=== PATIENT | female | born 1970 | race Caucasian/White ===

== ENCOUNTER 2017-12-24 08:50 | Day surgery (SDC) | payer OTHER ==
[~2017-12-24] VITALS: Ht 167.6 cm; Wt 97.1 kg
--- NOTE | 2017-12-24 11:02 | NUR ---
has been updated x2 during wait. has been up to br x2 during wait. warm blanket on. iv patent.
--- NOTE | 2017-12-24 13:04 | NUR ---
12/24/17 1304 Codi Arambula TO PACU, AWAKENS EASILY. COUGHING NOTED. NON PRODUCTIVE AT THIS TIME.
[2017-12-24] MEDS ORDERED: NORCO 5-325 TA1 EACH (14:25)
[2017-12-24] MEDS ORDERED: IBUPROFEN800 MG PO (14:26)
--- NOTE | 2017-12-30 14:17 | OR ---
[facility] [address] [place], [place] [address] Signed DATE OF OPERATION: 12/24/2017 SURGEON: Ever Varela MD PREOPERATIVE DIAGNOSES: Heavy menstrual bleeding and thickened endometrium. POSTOPERATIVE DIAGNOSES: Heavy menstrual bleeding and thickened endometrium plus submucosal fibroid. PROCEDURE: Hysteroscopy with myomectomy and endometrial biopsy. ANESTHESIA: General. ESTIMATED BLOOD LOSS: 25 mL. SPECIMEN: Submucosal fibroids and endometrial tissue. DRAINS: None. FINDINGS: Cervix thick, closed. Uterus, eight-week size irregular with uterine cavity sounding to 11 cm. There is a moderate amount of irregular endometrial tissue within the cavity plus several small pedunculated fibroids. All grouped together in the center of the uterine cavity with at least 4 stalks seen at 2, 6, and 8 o'clock and also one fundal stalk. Fibroids had grown together into one irregular mass. COMPLICATIONS: None. DESCRIPTION OF PROCEDURE: The patient was brought to the operating room and placed in supine position. After adequate general anesthesia was obtained, was placed in dorsal lithotomy position and prepped and draped in usual sterile fashion. A weighted speculum was placed in the vagina. The anterior lip of cervix grasped with an Allis clamp. Uterine cavity was Electronically Signed By: EVER VARELA MD 12/30/17 1417 PATIENT NAME: TRISTAN MADERA YONIS OPERATIVE REPORT DATE OF : 70 REPORT #: [id number] PHYSICIAN: EVER VARELA MD PCP: NO PRIMARY CARE PHYSICIAN REPORT IS CONFIDENTIAL AND NOT TO BE RELEASED WITHOUT AUTHORIZATION [facility] [address] [place], [place] [address] Signed sounded to 11 cm and cervix dilated up to a #7-Sinhala dilator. The hysteroscope was then placed in the endocervical canal and entered the uterine cavity under direct visualization. Sterile water was used as distending medium. The above findings were noted. The MyoSure REACH as then placed through the hysteroscope and under direct visualization the pedunculated fibroids and metal were removed in pieces, suctioned out through the MyoSure. The fibroids were quite tough and were difficult for the MyoSure to grasp to get specimens of the fibroids, but this was taken down taking care to make sure that the dissection was all done in the middle of the uterine cavity and not out to the side. The three lateral stalks were carefully taken down near the endometrial cavity, but staying out of the myometrium. During this procedure, there was small amount of bleeding from the fibroids and as more fibroids were taken out the cavity became more and more cloudy making visualization more difficult. An attempt was made to clear the cavity by removing the MyoSure and putting the suction tip back through the hysteroscope and irrigating and suctioning cavity, also the uterus was filled with fluid and just in held in place to try to control with tamponade. This did not work well, so the hysteroscope was removed and sharp curette carefully inserted into the cavity and scraped in 360-degree fashion removing moderate amount of normal-appearing endometrial tissue, but no fibroids. The hysteroscope was again placed back into the cervix and entered the uterine cavity under direct visualization and the remaining portion of the fibroid could be identified and so again it was attempted to remove the rest of the fibroids, but again the MyoSure would not get good bites of the firm fibroid and the area became cloudy once again. At this point, about half of the fibroid tissue apparently have been removed and it was decided that the risk of continuing without visualization is not worth continuing, so all instruments were removed from the uterus and cervix. The cervix was observed and noted to have good hemostasis with no bleeding out of the cervix. All instruments were removed from the vagina. The patient tolerated the procedure well, went to recovery room in good condition. The sponge, needle and instrument count correct at the end of procedure. The specimens from the uterine cavity were sent to Pathology for identification. The fluid deficit was estimated to be approximately 350 mL since a lot of the fluid leaked around the collection bag. Ever Varela MD MJB/MODL /[id number] Electronically Signed By: EVER VARELA MD 12/30/17 1417 PATIENT NAME: TRISATN MADERA [facility] OPERATIVE REPORT DATE OF : 70 REPORT #: [id number] PHYSICIAN: EVER VARELA MD PCP: NO PRIMARY CARE PHYSICIAN REPORT IS CONFIDENTIAL AND NOT TO BE RELEASED WITHOUT AUTHORIZATION [facility] [address] [place] [id number] Signed Copies: ~ Electronically Signed By: EVER VARELA MD 12/30/17 1417 PATIENT NAME: TRISTAN MADERA [facility] OPERATIVE REPORT DATE OF : 70 REPORT #: [id number] PHYSICIAN: EVER VARELA MD PCP: NO PRIMARY CARE PHYSICIAN REPORT IS CONFIDENTIAL AND NOT TO BE RELEASED WITHOUT AUTHORIZATION
== END 2017-12-24 14:40 | disposition home or self-care (01) ==
LOC: DS 08:50
PROVIDERS: General Practice
PROC: 0UDB8ZX Extraction of Endometrium, Via Natural or Artificial Opening Endoscopic, Diagnostic (ICD-10-PCS; 2017-12-24)
PROC: 0UB98ZZ Excision of Uterus, Via Natural or Artificial Opening Endoscopic (ICD-10-PCS; principal; 2017-12-24 11:00)
DX: D25.0 Submucous leiomyoma of uterus (principal); E78.00 Pure hypercholesterolemia, unspecified; K21.9 Gastro-esophageal reflux disease without esophagitis; D64.9 Anemia, unspecified; F17.290 Nicotine dependence, other tobacco product, uncomplicated; Z98.890 Other specified postprocedural states; Z88.2 Allergy status to sulfonamides
CPT/HCPCS: 00952; J1100; J1885; J2250; J2405; J2704; J2765; J3010; J7120

== ENCOUNTER 2018-03-25 05:45 | Day surgery (SDC) | payer OTHER ==
[~2018-03-25] VITALS: Ht 167.6 cm; Wt 96.6 kg
[~2018-03-25 05:45] MED LIST: IBUPROFEN800 MG PO; NORCO 5-325 TA1 EACH
--- NOTE | 2018-03-25 09:46 | NUR ---
03/25/18 0946 Veronica Bruno 0934 PT ARRIVED TO PACU ON 10L VIA MASK AND REACTIVE TO TACTILE AND VERBAL STIMULI, DENIES NAUSEA AND PAIN. PT TEARFUL. 0936 O2 DECREASED TO 6L VIA MASK O2 SAT 100%. 0943 O2 MASK REMOVED, O2 SAT 100%. PT CONTINUES TO DENIE PAIN AND NAUSEA, PT REORINETED TO PACU. PT MORE AWAKE AND OPENING HER EYES.
--- NOTE | 2018-03-25 11:29 | NUR ---
amb to br voids 50mls, cath just removed. amb well. rates pain at 4/10.
--- NOTE | 2018-03-25 12:19 | OR ---
[facility] [address] [place], [place] [address] Signed DATE OF OPERATION: 03/25/2018 SURGEON: Ever Davis MD NOTE: Patient of Dr. Davis. PREOPERATIVE DIAGNOSES: Submucosal fibroids and heavy menstrual bleeding. POSTOPERATIVE DIAGNOSES: Submucosal fibroids and heavy menstrual bleeding. PROCEDURES: Total laparoscopic hysterectomy with bilateral salpingectomy and cystoscopy. ASSORTMENT PLANNER: Dr. Hoff. ANESTHESIA: General. ESTIMATED BLOOD LOSS: 20 mL. COMPLICATIONS: None. DRAINS: Landa to bladder. FINDINGS: Cervix that closed. Uterus enlarged, 8-week size, smooth, symmetric. The anterior cul-de-sac was free of any endometriosis or adhesions. The posterior cul-de-sac was free of any endometriosis or adhesions. The left tube was normal length and normal pink fimbriated end. The left ovary is normal size and shape without any evidence of endometriosis or adhesions. There was slight puckering adhesions along the uterosacral ligament. The right tube was normal in length and normal-appearing fimbriated end and the right ovary was normal size and shape without any evidence of endometriosis or adhesions. The appendix appeared normal. There are no other masses or adhesions noted. Electronically Signed By: EVER DAVIS MD 03/25/18 1219 PATIENT NAME: TRISTAN MADERA OPERATIVE REPORT DATE OF : 70 REPORT #: [id number] PHYSICIAN: EVER DAVIS MD PCP: REA BARROS PAC REPORT IS CONFIDENTIAL AND NOT TO BE RELEASED WITHOUT AUTHORIZATION [facility] [address] [facility] [place] [address] Signed DESCRIPTION: The patient was brought into the operating room, placed supine position. After adequate general anesthesia was obtained, she was placed in dorsal lithotomy position, prepped and draped in usual sterile fashion. Landa catheter was placed in the bladder. A weighted speculum was placed in the vagina and the anterior lip of the cervix grasped with a long Allis clamp. The uterine cavity was sounded to 11 cm and the cervix partially dilated. The Lighter Living uterine manipulator was then inserted into the uterine cavity. The balloon filled with sterile water. The Allis clamp and weighted speculum were removed. The cervical cap was slid up and placed around the cervix. The vaginal cuff was then slid up against the cervical cap and tightened in place to hold the cap against the cervix. A sterile glove was placed over the handle. Attention was then drawn to the abdomen. A small infraumbilical skin incision was made with a scalpel after injecting the area with 0.5% Marcaine. The subcutaneous tissue was dissected with Metzenbaum scissors. The fascia identified, grasped with hemostats, elevated, nicked with Metzenbaum scissors and extended transverse fashion using Metzenbaum scissors. Retention stitches of 0 Vicryl suture placed above and below the incision. The peritoneum was opened with finger dissection. An S-retractor inserted into the incision and spun 360 degree fashion revealing no resistance verifying placement in the abdomen. Mariama trocar and sleeve were then placed through the incision. The S-retractor was removed. The sleeve balloon filled with air and then 2 stitches used to tighten the sleeve in place. The trocar was removed and the laparoscope with video attachment entered the abdomen. Under direct visualization, carbon dioxide was used as a distending medium. The above findings were noted. On the left side just below and approximately 10 cm lateral to the midline, a 5 mm bladed trocar and sleeve entered the abdomen under direct visualization after transilluminating the abdominal wall to avoid any vessels injecting the area with 0.5% Marcaine and making a small skin incision. After the trocar and sleeve entered the abdomen, the balloon was filled with air, the trocar removed and blunt grasper inserted on the right side again just below the level of the umbilicus approximately 10 cm lateral to the midline and another skin incision was made after transilluminating the area injecting the area with 0.5% Marcaine and then after making skin incision with a scalpel, Veress needle was used to enter the abdomen under direct visualization and the Veress needle was removed. An expandable trocar and sleeve entered were placed through the mesh of the Veress needle and then the trocar removed and 2nd blunt grasper was inserted through this side. The above findings were verified. Bipolar Maryland forceps were then used to cauterize the mesosalpinx along the edge of the fallopian tube and then the fallopian tube cauterized and cut free near the fundus of the uterus and the tube was pulled through the right sleeve. The round ligament was then cauterized and cut. The utero-ovarian ligament cauterized and cut again using the LigaSure [place] bipolar forceps and then the upper portion of broad ligament cauterized and cut. At Electronically Signed By: EVER DAVIS MD 03/25/18 1219 PATIENT NAME: TRISTAN MADERA OPERATIVE REPORT DATE OF : 70 REPORT #: [id number] PHYSICIAN: EVER DAVIS MD PCP: REA BARROS PAC REPORT IS CONFIDENTIAL AND NOT TO BE RELEASED WITHOUT AUTHORIZATION [address], [place] [address] Signed this point, the anterior peritoneum was opened along the side of the uterus and down to the midline along the lower segment staying away from the bladder trying to stay at the level of the vaginal cuff. The posterior peritoneum was also cauterized and cut and opened along the side of the uterus and down the midline and posterior cul-de-sac again to the approximate level of the cervical cap. With anterior and posterior leaves of the broad ligament opened, the vessels were exposed and these were cauterized in several places and cut. Tissue dissection was carried down to the cup which could be palpated with the Maryland forceps. With this side clear of any vessels, the left side was done in similar fashion removing the fallopian tube along just below cauterizing and cutting the mesosalpinx along the length of the tube and then cutting across the tube in the proximal and again tube removed through the right port. The utero-ovarian ligament and the round ligament were cauterized and cut. The upper part of the broad ligament also cauterized and cut. Again, the peritoneum opened anterior and posteriorly connecting with the previous dissection in the midline. The uterine vessels on this side were cauterized in several places and cut and the tissue taken down to the cervical cap, which could be again be palpated. With the dissection carried down to the vaginal mucosa, the Sonicision was used to open the vaginal mucosa and the posterior cul-de-sac in the groove of the cervical cap. The dissection was then carried posterior to anterior along the left side to the midline and then posterior to anterior on the right side to the midline the cervix and uterus from the vaginal mucosa. The inflation was stopped and attention drawn back to the vagina. The weighted speculum was placed in the vagina. The cervix could be seen in the vagina and this was grasped with a long Allis clamp and with gentle traction, the uterus was brought partly out. The uterus was too large to remove whole and wanted to avoid any tearing of the vaginal opening, so the portion of the uterus outside of the opening was grasped the left and right side and incision and uterus bivalved along the midline using a scalpel blade. The left side of the uterus was then removed and this gave enough room for the uterus to gently be removed on the rest of the way. A lap pad was placed in a sterile glove and placed in the vagina, so that the abdomen could be re-insufflated. The abdomen was then re-insufflated and the entire pelvis was irrigated, suctioned, examined, and noted to have good hemostasis. The vaginal cuff was then closed using the barbed suture and EndoStitch. This was started at the right uterosacral ligament and after stitch placed through the posterior vaginal mucosa, stitch went through the loop at the end of the barbed suture and tightened in place. The anterior mucosa was then stitched and the procedure continued individually stitching from posterior to anterior and then the anterior mucosa posterior to the anterior, continued from the right uterosacral ligament over to the left uterosacral ligament. Thus, doing posterior and anterior individually and tightening each time after reaching the left corner, the stitch was continued back to the midline again posterior to anterior and the suture cut against the mucosa, so that no barbed suture was sticking out. At this point, the Electronically Signed By: EVER DAVIS MD 03/25/18 1219 PATIENT NAME: TRISTAN MADERA YONIS OPERATIVE REPORT DATE OF : 70 REPORT #: [id number] PHYSICIAN: EVER DAVIS MD PCP: REA BARROS PAC REPORT IS CONFIDENTIAL AND NOT TO BE RELEASED WITHOUT AUTHORIZATION [address] [address] Signed pelvis was again irrigated, suctioned, examined, and noted to have good hemostasis. The raw surface area was then covered with Evisel and then the 2 lateral sleeves removed and were observed and noted to have good hemostasis. The gas was then allowed to escape and the final sleeve removed. The infraumbilical incision was closed using running stitch of 0 Vicryl suture. The 2 retention stitches were tied together for further support. The right side was palpated and the fascia noted to be very small because of the stretching and no dissection, so no stitch was needed there. The 3 skin incisions were closed using subcuticular stitches of 4-0 Vicryl. The lap pad and sponge were removed from the vagina. The Landa catheter removed and the cystoscope placed in the urethra and entered the bladder under direct visualization. Sterile water was used as distending medium. The bladder was examined. No puckering was seen. No bleeding was seen. No stitches observed. Both ureters were easily identifiable and both showed good efflux of urine. At this point, the cystoscope removed, bladder drained, and then the sleeve removed. Landa was placed back in the bladder. The patient tolerated the procedure well and went to recovery room in good condition. The sponge, needle, and instrument count correct at end of procedure. MD LESTER Hung/OLIVIAL /[id number] Copies: ~ Electronically Signed By: EVER DAVIS MD 03/25/18 1219 PATIENT NAME: TRISTAN MADERA OPERATIVE REPORT DATE OF : 70 REPORT #: [id number] PHYSICIAN: EVER DAVIS MD PCP: REA BARROS PAC REPORT IS CONFIDENTIAL AND NOT TO BE RELEASED WITHOUT AUTHORIZATION
--- NOTE | 2018-03-25 13:47 | NUR ---
PT ALERT, ORIENTED AND SUPPORTED BY HER TRUDY. PT SEEMED IN GOOD SPIRITS, GAVE TRUDY [id number] TO [place]. DR VARELA IN, WILL CONTINUE TO FOLLOW NEEDED
--- NOTE | 2018-03-25 13:58 | NUR ---
LE 1315 PT UP TO RESTROOM, VOID 400. PT BACK TO ROOM, HAS MEET CRITERIA FOR DC. PT READY TO GO HOME. IV D/C'D AND PT DRESSED WITH HELP OF . DISCHARGE INFO GIVEN, ALL QUESTIONS ANSWERED. PT WHEELED OUT OF UNIT WITH .
== END 2018-03-25 13:30 | disposition home or self-care (01) ==
LOC: DS 05:45
PROVIDERS: General Practice
PROC: 0UT94ZZ Resection of Uterus, Percutaneous Endoscopic Approach (ICD-10-PCS; principal; 2018-03-25 06:45)
PROC: 0UT74ZZ Resection of Bilateral Fallopian Tubes, Percutaneous Endoscopic Approach (ICD-10-PCS; 2018-03-25 06:45)
DX: D25.0 Submucous leiomyoma of uterus (principal); D25.1 Intramural leiomyoma of uterus; N80.0 Endometriosis of uterus; N72 Inflammatory disease of cervix uteri; E78.00 Pure hypercholesterolemia, unspecified; F17.210 Nicotine dependence, cigarettes, uncomplicated; K21.9 Gastro-esophageal reflux disease without esophagitis; Z98.890 Other specified postprocedural states; Z88.8 Allergy status to other drugs, medicaments and biological substances
CPT/HCPCS: J0330; J0690; J1100; J1644; J1885; J2250; J2270; J2405; J2704; J2765; J3010; J7120